=== PATIENT | male | born 1965 | race Caucasian/White ===

== ENCOUNTER → 2019-11-25 08:07 | Outpatient (BNVA) | payer BC, SELFPAY | PROVIDERS: Family Provider Family Medicine; PCP Family Medicine; Visit Provider Urology | DX: E29.1 Testicular hypofunction (principal); Z12.5 Encounter for screening for malignant neoplasm of prostate; N52.9 Male erectile dysfunction, unspecified | CPT/HCPCS: 81001 ==

== ENCOUNTER 2020-06-01 08:50 | Outpatient (CLI) | payer BC, SELFPAY ==
--- NOTE | 2020-06-01 10:14 | ONC FU_ITS ---
Dr. Bennett Patient Follow-Up Note Patient: Sami Vaca Unit #: [id number]: 1965 Dicatated By: Chencho Bennett M.D.Date of Visit:Jun 01, 2020 Onc Med Follow-up/Prog Note Chief Complaint: Lymphoma. History of Present Illness: This is a 53 year-old man with diffuse large B-cell lymphoma. He was originally diagnosed with a low-grade lymphoma in 2002. At that time he was treated with R-CHOP chemotherapy followed by 2 years of maintenance Rituxan. He had evidence of disease progression in [address] at that time showing an enlarging mass in the right pelvic region. 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 He was then treated with 3 cycles of R-ESHAP chemotherapy followed by high-dose chemotherapy/stem cell transplant at [facility] in November 2006. He has been in sustained remission following the stem cell transplant. His other medical illnesses include bipolar disorder and GERD. He also has androgen deficiency, for which he has been receiving testosterone injections. He is a nonsmoker. INTERIM HISTORY: His lipid profile in September 2017 had shown significantly elevated total and calculated LDL cholesterol levels. He was scheduled to have a repeat fasting lipid profile with his other laboratory studies following his visit in May 2019, but he apparently did not have those done. He is seen for a follow-up visit. He has been feeling good generally. He has good energy and activity tolerance. Appetite also is good. He has continued to gain weight. He does not have fever or night sweats. His blood pressure is up a little today, and he says it has been running high at other times. He does not complain of shortness of breath, cough, or chest pain. He has no GI or complaints. He has no significant joint or bone pain. He does not complain of headache or dizziness. He has no focal neurologic symptoms. Medications: Multiple Vitamin Take 1 Tablet Oral daily, PriLOSEC 20 mg - Take 1 Capsule Delayed Release Oral daily, Testosterone Cypionate 1 (100 mg/mL) Intramuscular q 2 weeks Allergies: yone Review of Systems: Constitutional - He has good energy and activity tolerance. Appetite is good. He has continued to gain weight. No fever, night sweats, or hot flashes. ECOG score is 0, ENMT - No sinus congestion/drainage. No mouth sores. No sore throat or difficulty swallowing, Hematologic/Lymphatic - No abnormal bruising or bleeding, Respiratory - No shortness of breath. No cough. No pleuritic pain or hemoptysis, Cardiovascular - No angina pain. No palpitations, Gastrointestinal - No nausea or vomiting. No heartburn or acid reflux. No diarrhea or constipation. No blood in the stool or black stools, Genitourinary (M) - No dysuria or hematuria. No urinary frequency. No urgency or incontinence, Musculoskeletal - No joint or bone pain, Integumentary - No skin rash, Neurologic - No headache or dizziness. No numbness or tingling. No other focal neurologic symptoms, Psychiatric - He has had anxiety or depression in the past, but thus far he has been doing well since he went off medications. No insomnia. Vital Signs: Performed on Jun 01, 2020 09:04 Height - 69.50 in Weight - 283.2 lbs (HIGH) BSA - 2.41 sq.m BMI - 41.22 (HIGH) Temperature - 97.9 F (LOW) Pulse - 81 /min Respiration - 22 /min BP - 159/101 mm(hg) (HIGH) O2 Sat - 95 % (LOW) Pain - 0 Physical Examination: Constitutional - He has significant obesity. He otherwise looks good generally, Eyes - Sclerae nonicteric. Conjunctivae clear, ENMT - No lesions noted in the oral cavity, Hematologic/Lymphatic - No cervical, clavicular, or axillary adenopathy, Respiratory - Lungs are clear with good air movement bilaterally, Cardiovascular - Heart rhythm is regular. There is no murmur, gallop, or rub noted, Abdomen - Distended and firm. Liver and spleen are not enlarged. There is no abdominal mass or ascites noted and there is no inguinal adenopathy, Extremities - No edema. Dorsalis pedis pulses are palpable bilaterally, Neurologic - No focal neurologic deficits noted. Impression: 1. 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 2. He has been in sustained remission following salvage chemotherapy and subsequent high-dose chemotherapy/stem cell transplant at [facility] in November 2006. His other medical illnesses include: 3. GERD. 4. Androgen deficiency. 5. Bipolar disorder. During follow-up he has been doing well clinically with no evidence of recurrence of the lymphoma. He has been showing gradual weight gain, and he now has developed mild hypertension. His lipid profile in September 2017 had shown significantly elevated total and calculated LDL cholesterol levels, and thus far that has not been addressed. Plan: He remains on observation/expectant management for the lymphoma. He will again be scheduled to come in for laboratory studies to include CBC, comprehensive metabolic profile, LDH level, and fasting lipid profile. His hypertension and hyperlipidemia will be addressed when those results are available. I will tentatively plan a follow-up visit in 1 year. Signed By: Chencho Bennett M.D. <<Signature on File>>
== END 2020-06-01 08:51 | disposition home or self-care (01) ==
LOC: ONCMED 08:56
PROVIDERS: PCP Family Medicine; Visit Provider Internal Medicine Medical Oncology
DX: C83.36 Diffuse large B-cell lymphoma, intrapelvic lymph nodes (principal); K21.9 Gastro-esophageal reflux disease without esophagitis; E29.1 Testicular hypofunction; F31.9 Bipolar disorder, unspecified; I10 Essential (primary) hypertension; E78.5 Hyperlipidemia, unspecified; Z92.21 Personal history of antineoplastic chemotherapy
CPT/HCPCS: 99214

== ENCOUNTER → 2020-12-06 09:43 | Outpatient (BNVA) | payer OTHER, SELFPAY | PROVIDERS: PCP Family Medicine; Visit Provider Urology | DX: N39.9 Disorder of urinary system, unspecified (principal); Z12.5 Encounter for screening for malignant neoplasm of prostate; E29.1 Testicular hypofunction | CPT/HCPCS: 81003; 84153 ==

== ENCOUNTER 2021-07-11 13:35 | Outpatient (CLI) | payer OTHER, SELFPAY ==
--- NOTE | 2021-07-14 10:10 | ONC FU_ITS ---
Dr. Bennett Patient Follow-Up Note Patient: Sami Vaca Unit #: [id number]: 1965 Dicatated By: Chencho Bennett M.D.Date of Visit:Jul 11, 2021 Onc Med Follow-up/Prog Note Chief Complaint: Lymphoma. History of Present Illness: This is a 55 year-old man with diffuse large B-cell lymphoma. He was originally diagnosed with a low-grade lymphoma in 2002. At that time he was treated with R-CHOP chemotherapy followed by 2 years of maintenance Rituxan. He had evidence of disease progression in [address] at that time showing an enlarging mass in the right pelvic region. 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 He was then treated with 3 cycles of R-ESHAP chemotherapy followed by high-dose chemotherapy/stem cell transplant at [facility] in November 2006. He has been in sustained remission following the stem cell transplant. His other medical illnesses include bipolar disorder and GERD. He also has androgen deficiency, for which he has been receiving testosterone injections. His lipid profile in September 2017 had shown significantly elevated total and calculated LDL cholesterol levels. He is a nonsmoker. INTERIM HISTORY: He is seen for a follow-up visit. He has been feeling good generally. He says he has normal energy and activity. ECOG score is 0. He has good appetite. He has no fever or night sweats. He has not had sore mouth or throat. He does not complain of cough, and he has not been having shortness of breath or chest pain. He currently has no GI or complaints. He has no significant joint or bone pain. He has just occasional headache now. He does not complain of dizziness, and he has no focal neurologic symptoms. Medications: Multiple Vitamin Take 1 Tablet Oral daily, PriLOSEC 20 mg - Take 1 Capsule Delayed Release Oral daily, Testosterone Cypionate 1 (100 mg/mL) Intramuscular q 2 weeks Allergies: vale Vital Signs: Performed on Jul 11, 2021 14:02 Height - 69.50 in Weight - 273.8 lbs (LOW) BSA - 2.37 sq.m BMI - 39.85 (HIGH) Temperature - 97.9 F (LOW) Pulse - 82 /min Respiration - 18 /min BP - 150/90 mm(hg) (HIGH) O2 Sat - 92 % (LOW) Pain - 0 Fatigue - 0 Physical Examination: Constitutional - He looks pretty good generally, Eyes - Sclerae nonicteric. Conjunctivae clear, ENMT - No lesions noted in the oral cavity, Hematologic/Lymphatic - No cervical, clavicular, or axillary adenopathy, Respiratory - Lungs are clear with good air movement bilaterally, Cardiovascular - Heart rhythm is regular. There is no murmur, gallop, or rub noted, Abdomen - Distended. Liver and spleen are not enlarged. There is no abdominal mass or ascites noted and there is no inguinal adenopathy, Extremities - No edema, Neurologic - No focal neurologic deficits noted. Problem List: 1. 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 2. Hyperlipidemia. 3. GERD. 4. Androgen deficiency. 5. Bipolar disorder. Problems Addressed with this Encounter and Plan: 1. 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 It was diagnosed in 2005 following previous treatment for low-grade lymphoma in 2002. He has been in sustained remission following salvage chemotherapy and subsequent high-dose chemotherapy/stem cell transplant at [facility] in November 2006. During follow-up he has been doing well clinically. He is now almost 15 years out from completion of treatment with no evidence of recurrence of the lymphoma. He can remain on expectant management. At this point he will just continue regular follow-up with her primary care provider. I will see him again as needed. 2. He had significantly elevated total and calculated LDL cholesterol levels on his lipid profile in September 2017. I have not been able to get him to repeat those studies. He will again be scheduled to come in for fasting labs to include CBC, comprehensive metabolic profile, LDH level, and fasting lipid profile. He will have further evaluation as indicated. Signed By: Chencho Bennett M.D. <<Signature on File>>
== END 2021-07-11 13:36 | disposition home or self-care (01) ==
LOC: ONCMED 13:38
PROVIDERS: PCP Family Medicine; Visit Provider Internal Medicine Medical Oncology
DX: Z08 Encounter for follow-up examination after completed treatment for malignant neoplasm (principal); Z85.72 Personal history of non-Hodgkin lymphomas; E78.5 Hyperlipidemia, unspecified; K21.9 Gastro-esophageal reflux disease without esophagitis; R79.89 Other specified abnormal findings of blood chemistry; F31.9 Bipolar disorder, unspecified; Z79.899 Other long term (current) drug therapy; Z92.21 Personal history of antineoplastic chemotherapy
CPT/HCPCS: G0463

== ENCOUNTER → 2021-07-12 08:25 | Outpatient (BNVA) | payer OTHER, SELFPAY | PROVIDERS: PCP Family Medicine; Visit Provider Internal Medicine Medical Oncology | DX: C85.90 Non-Hodgkin lymphoma, unspecified, unspecified site (principal); E78.5 Hyperlipidemia, unspecified | CPT/HCPCS: 80053; 80061; 83615; 85025 ==

== ENCOUNTER 2021-12-06 09:58 | Outpatient (CLI) | payer OTHER, SELFPAY ==
[2021-12-06 11:12] LABS: Prostate Specific Antigen Scr 0.49 ng/mL (0-4); Testosterone Total 374.2 ng/dL (193-740)
== END 2021-12-06 09:59 | disposition home or self-care (01) ==
PROVIDERS: PCP Family Medicine; Visit Provider Urology
DX: Z12.5 Encounter for screening for malignant neoplasm of prostate (principal); R79.89 Other specified abnormal findings of blood chemistry
CPT/HCPCS: 84403; G0103

== ENCOUNTER → 2022-12-04 14:54 | Outpatient (BNVA) | payer OTHER, SELFPAY | PROVIDERS: PCP Nurse Practitioner Family; Visit Provider Urology | DX: E29.1 Testicular hypofunction (principal); N52.9 Male erectile dysfunction, unspecified; Z12.5 Encounter for screening for malignant neoplasm of prostate | CPT/HCPCS: 81003 ==